=== PATIENT | male | born 1990 ===

== ENCOUNTER 2020-05-03 22:23 | Emergency (ER) | payer SELFPAY ==
--- OUTSIDE RECORDS SUMMARY | 2020-05-03 22:25 | XMS REPORT | Continuity of Care Document ---
:1990 Author Organization [facility] t Address [address] [place] [address] Care Team Providers Name Role Phone Madhu Kim MD Attending Clinician Doctor Unassigned, Name Attending Clinician Unavailable Problems This patient has no known problems. Allergies, Adverse Reactions, Alerts This patient has no known allergies or adverse reactions. Medications This patient has no known medications. Procedures This patient has no known procedures. Encounters Start End Encounter Admission Attending Care Care Encounter Source Date/Time Date/Time Type Type Clinicians Facility Department ID 2019-03-02 2019-03-02 Patient BIRGIT Kim [id number] 00:00:00 00:00:00 Secure Ms Terry DIAZ [id number] [facility] [id number] [place] AT [phone] [address] 2018-03-12 2018-03-12 Orders Doctor LEBRON [id number] 00:00:00 00:00:00 Only UnassignedPRISCA [id number] [place] [facility] [id number] Results This patient has no known results.
[2020-05-03] MEDS ORDERED: ONDANSETRON 4 MG/2 ML VIAL ONE (23:25)
[2020-05-03] MEDS ORDERED: NA CHLORIDE 0.9% 1,000 ML ONE (23:26)
[2020-05-03] MEDS ORDERED: MEPERIDINE HCL 25 MG/ML SYR ONE (23:26)
[2020-05-03 23:30] LABS: Absolute Lymphocytes (CBC) 2.4 K/uL (0.7-4.9); Basophils % 0.4 % (0-1.3); Hematocrit 37.7 % (39.6-49.0); Lymphocytes % 18.9 % (15.3-44.8); MPV 7.6 fL (7.6-11.3); RBC Red Blood Cell Count 4.49 M/uL (4.33-5.43)
[2020-05-03 23:41] LABS: ALT/SGPT 22 U/L (12-78); AST/SGOT 17 U/L (15-37); Albumin 3.5 g/dL (3.4-5.0); Alkaline Phosphatase 113 U/L (45-117); BUN Blood Urea Nitrogen 8 mg/dL (7-18); Bicarbonate 23 mmol/L (21-32); Bilirubin Direct < 0.1 mg/dL (0-0.2); Bilirubin Total 0.3 mg/dL (0.2-1.0); Glucose Level 89 mg/dL (74-106); Lipase 130 U/L (73-393); Potassium 3.6 mmol/L (3.5-5.1); Protein, Total 7.5 g/dL (6.4-8.2); Sodium Level 140 mmol/L (136-145)
--- NOTE | 2020-05-04 01:09 | EDPHYS ---
Physician Documentation [facility] Name: Graham Austin Age: 29 yrs Sex: Male : 1990 Arrival Date: 05/03/2020 Time: 22:25 Bed 4 Private MD: ED Physician Doug Hutchinson HPI: 05/03 22:48 This 29 yrs old Male presents to ER via Wheelchair with complaints of rn Diarrhea, Abdominal Pain, Bloody Stools. 22:48 The patient presents to the emergency department with diarrhea, abdominal pain. rn 22:48 Onset: The symptoms/episode began/occurred 1 week(s) ago. Possible causes: flare up of rn bowel problem, ulcerative colitis. The symptoms are aggravated by pressure, The symptoms are alleviated by nothing. Severity of symptoms: At their worst the symptoms were moderate in the emergency department the symptoms are unchanged. The patient has experienced similar episodes in the past. The patient has not recently seen a physician. Reports has ulcerative colitis, stopped taking his medication due to insurance problems, now reports 1 week of lower abd pain, assoc with bloody diarrhea. No fever/sick contacts/vomiting. . Historical: - Allergies: 22:49 Gluten Protein; 22:49 PENICILLINS; 22:49 Beta-Blockers (Beta-Adrenergic Blocking Agts); - Home Meds: 22:49 Symbicort [Active]; Lexapro Oral [Active]; ProAir [Active]; - PMHx: 22:49 Asthma; Ulcerative Colitis; - Immunization history:: Adult Immunizations not up to date. - Social history:: Smoking status: Patient/guardian denies using. - Family history:: not pertinent. - Hospitalizations: : No recent hospitalization is reported. ROS: 22:48 Constitutional: Negative for fever, chills, and weight loss, Eyes: Negative for injury, rn pain, redness, and discharge, Neck: Negative for injury, pain, and swelling, Cardiovascular: Negative for chest pain, palpitations, and edema, Respiratory: Negative for shortness of breath, cough, wheezing, and pleuritic chest pain, Abdomen/GI: + lower abd pain and diarrhea, no vomiting : Negative for injury, bleeding, discharge, and swelling, MS/Extremity: Negative for injury and deformity, Skin: Negative for injury, rash, and discoloration, Neuro: Negative for headache, weakness, numbness, tingling, and seizure. Exam: 22:48 Constitutional: This is a well developed, well nourished patient who is awake, alert, rn and in no acute distress. Head/Face: Normocephalic, atraumatic. Cardiovascular: Regular rate and rhythm. No pulse deficits. Respiratory: Speaking full sentences, unlabored. No increased work of breathing, no retractions or nasal flaring. Abdomen/GI: soft, mild RLQ and LLQ tenderness, no rebound Skin: Warm, dry MS/ Extremity: Pulses equal, no cyanosis. Neuro: Awake and alert, GCS 15 Vital Signs: 22:46 BP 133 / 77; Pulse 78; Resp 18; Temp 98.2; Pulse Ox 97% ; Weight 84.37 kg; Height 5 ft. wh 7 in. (170.18 cm); Pain 5/10; 23:27 BP 118 / 73; Pulse 69; Resp 18; Pulse Ox 99% on R/A; wh 05/04 00:30 BP 119 / 66; Pulse 73; Resp 18; Pulse Ox 99% on R/A; wh 01:30 BP 121 / 58; Pulse 81; Resp 18; Pulse Ox 98% on R/A; wh 05/03 22:46 Body Mass Index 29.13 (84.37 kg, 170.18 cm) MDM: 05/03 22:38 Patient medically screened. rn 23:47 ED course: Feels much better, currently pain free. Pending ct abdomen. . rn 05/04 01:06 Differential diagnosis: Nonspecific abd pain, viral gastroenteritis, gastroenteritis, rn colitis. Data reviewed: vital signs, nurses notes, lab test result(s), radiologic studies, CT scan, and as a result, I will discharge patient. Counseling: I had a detailed discussion with the patient and/or guardian regarding: the historical points, exam findings, and any diagnostic results supporting the discharge/admit diagnosis, lab results, radiology results, the need for outpatient follow up, to return to the emergency department if symptoms worsen or persist or if there are any questions or concerns that arise at home. Response to treatment: the patient's symptoms have markedly improved after treatment, and as a result, I will discharge patient. Special discussion: Based on the patient's Hx, exam, and Dx evaluation, there is no indication for emergent surgery or inpatient Tx. It is understood by the patient/guardian that if the Sx's persist or worsen they need to return immediately for re-evaluation. I discussed with the patient/guardian in detail that at this point there is no indication for admission to the hospital. It is understood, however, that if the symptoms persist or worsen the patient needs to return immediately for re-evaluation. Based on the history and exam findings, there is no indication for further emergent testing or inpatient evaluation. I discussed with the patient/guardian the need to see the addiction specialist for further evaluation of the symptoms. ED course: Pt improved, pain free, CT shows mild infectious vs inflammatory colitis, normal h/h, will given abx and bentyl, will dc home with GI f/u, abx, and bentyl. Return precautions given and understood. . 05/03 22:45 Order name: Basic Metabolic Panel; Complete Time: 23:42 05/03 22:45 Order name: CBC with Diff; Complete Time: 23:42 05/03 22:45 Order name: Hepatic Function; Complete Time: 23:42 05/03 22:45 Order name: Lipase; Complete Time: 23:42 05/03 22:45 Order name: CT Abd/Pelvis - IV Contrast Only 05/03 22:45 Order name: IV Saline Lock; Complete Time: 23:10 05/03 22:45 Order name: Labs collected and sent; Complete Time: 23:10 rn Administered Medications: 05/03 23:15 Drug: NS 0.9% 1000 ml Route: IV; Rate: 1000 ml; Site: left antecubital; 05/04 00:25 Follow up: IV Status: Completed infusion 05/03 23:17 Drug: Demerol 25 mg Route: IVP; Site: left antecubital; 05/04 00:25 Follow up: Response: No adverse reaction; Pain is decreased; RASS: Alert and Calm (0) 05/03 23:19 Drug: Zofran (Ondansetron) 4 mg Route: IVP; Site: left antecubital; 05/04 00:25 Follow up: Response: No adverse reaction; Nausea is decreased 01:16 CANCELLED (Physician Discretion): Cipro 400 mg 200 ml IVPB once over 60 mins 01:16 CANCELLED (Other Intervention Used): Flagyl 500 mg 100 ml IVPB at 200 ml/hr once over bb 30 mins 01:25 Drug: SOLU-Medrol 125 mg Route: IVP; Site: right antecubital; 01:36 Follow up: Response: No adverse reaction 01:25 Drug: Bentyl 20 mg Route: PO; 01:36 Follow up: Response: No adverse reaction 01:25 Drug: Flagyl 500 mg Route: PO; 01:36 Follow up: Response: No adverse reaction 01:25 Drug: Cipro 500 mg Route: PO; 01:36 Follow up: Response: No adverse reaction Disposition: 05/04/20 01:10 Discharged to Home. Impression: Colitis. - Condition is Stable. - Discharge Instructions: Colitis. - Prescriptions for Zofran ODT 4 mg Oral tablet,disintegrating - place 1 tablet by TRANSLINGUAL route every 8 hours As needed followed by 2 additional 8 mg doses at 8 hour intervals; 20 tablet. Bentyl 20 mg Oral Tablet - take 1 tablet by ORAL route every 6 hours As needed; 20 tablet. Cipro 500 mg Oral Tablet - take 1 tablet by ORAL route every 12 hours for 10 days; 20 tablet. Flagyl 500 mg Oral Tablet - take 1 tablet by ORAL route every 8 hours for 10 days; 30 tablet. Prednisone 20 mg Oral Tablet - take 3 tablet by ORAL route once daily for 5 days; 15 tablet. - Medication Reconciliation Form, Thank You Letter, Antibiotic Education, Prescription Opioid Use, Work release form form. - Follow up: Serafin Joaquin MD; When: As needed; Reason: Recheck today's complaints, Re-evaluation by your physician. - Problem is new. - Symptoms have improved. Signatures: Dispatcher [employer] EDTN Ximena Montero RN RN bb Nieto, Roman, MD MD rn Habalo, Winsy Corrections: (The following items were deleted from the chart) 01:09 01:08 05/04/2020 01:08 Discharged to Home. Impression: Colitis. Condition is Stable. rn Forms are Medication Reconciliation Form, Thank You Letter, Antibiotic Education, Prescription Opioid Use. Follow up: Serafin Joaquin; When: As needed; Reason: Recheck today's complaints, Re-evaluation by your physician. Problem is new. Symptoms have improved. rn 01:16 01:06 Cipro 400 mg 200 ml IVPB once over 60 mins ordered. mecca bb 01:16 01:06 Flagyl 500 mg 100 ml IVPB at 200 ml/hr once over 30 mins ordered. mecca bb 01:38 01:10 05/04/2020 01:10 Discharged to Home. Impression: Colitis. Condition is Stable. wh Prescriptions for Bentyl 20 mg Oral Tablet - take 1 tablet by ORAL route every 6 hours As needed; 20 tablet, Cipro 500 mg Oral Tablet - take 1 tablet by ORAL route every 12 hours for 10 days; 20 tablet, Flagyl 500 mg Oral Tablet - take 1 tablet by ORAL route every 8 hours for 10 days; 30 tablet. and Forms are Medication Reconciliation Form, Thank You Letter, Antibiotic Education, Prescription Opioid Use. Follow up: Serafin Joaquin; When: As needed; Reason: Recheck today's complaints, Re-evaluation by your physician. Problem is new. Symptoms have improved. rn
--- NOTE | 2020-05-04 01:09 | ER ---
Nurse's Notes [facility] Name: Graham Austin Age: 29 yrs Sex: Male : 1990 Arrival Date: 05/03/2020 Time: 22:25 Bed 4 Private MD: Diagnosis: Colitis Presentation: 05/03 22:46 Chief complaint: Patient states: HX of Ulcerative Colitis, PT not taking meds wh currently, C/O diarrhea that started 2 weeks ago, abd pain that started last night and bloody stools. Coronavirus screen: Client denies travel out of the [place] in the last 14 days. diarrhea. Ebola Screen: Patient negative for fever greater than or equal to 101.5 degrees Fahrenheit, and additional compatible Ebola Virus Disease symptoms Patient denies exposure to infectious person. Initial Sepsis Screen: Does the patient meet any 2 criteria? No. Patient's initial sepsis screen is negative. Does the patient have a suspected source of infection? Yes: Other: Diarrhea. Risk Assessment: Do you want to hurt yourself or someone else? Patient reports no desire to harm self or others. Onset of symptoms was May 03, 2020. 22:46 Method Of Arrival: Wheelchair 22:46 Acuity: LINA 3 wh Historical: - Allergies: 22:49 Gluten Protein; 22:49 PENICILLINS; 22:49 Beta-Blockers (Beta-Adrenergic Blocking Agts); - Home Meds: 22:49 Symbicort [Active]; Lexapro Oral [Active]; ProAir [Active]; - PMHx: 22:49 Asthma; Ulcerative Colitis; - Immunization history:: Adult Immunizations not up to date. - Social history:: Smoking status: Patient/guardian denies using. - Family history:: not pertinent. - Hospitalizations: : No recent hospitalization is reported. Screenin:49 Abuse screen: Denies threats or abuse. Denies injuries from another. Nutritional screening: No deficits noted. Tuberculosis screening: No symptoms or risk factors identified. Fall Risk None identified. Assessment: 22:49 General: Appears in no apparent distress. Behavior is calm, cooperative, appropriate wh for age. Pain: Complains of pain in epigastric area, right lower quadrant and left lower quadrant Pain does not radiate. Pain currently is 5 out of 10 on a pain scale. Quality of pain is described as crampy, Pain began 1 day ago. Neuro: Level of Consciousness is awake, alert, obeys commands, Oriented to person, place, time, situation, Appropriate for age. Cardiovascular: Capillary refill < 3 seconds. Respiratory: Airway is patent Respiratory effort is even, unlabored, Respiratory pattern is regular, symmetrical, Breath sounds are clear bilaterally. GI: Abdomen is flat, non-distended, Abd is soft Abd is non tender. : No signs and/or symptoms were reported regarding the genitourinary system. EENT: No signs and/or symptoms were reported regarding the EENT system. Derm: Skin is intact, is healthy with good turgor, Skin is pink, warm \T\ dry. normal. Musculoskeletal: Circulation, motion, and sensation intact. 23:27 Reassessment: Patient appears in no apparent distress at this time. No changes from previously documented assessment. Patient and/or family updated on plan of care and expected duration. Pain level reassessed. Patient is alert, oriented x 3, equal unlabored respirations, skin warm/dry/pink. 05/04 00:30 Reassessment: Patient appears in no apparent distress at this time. Patient and/or family updated on plan of care and expected duration. Pain level reassessed. Patient is alert, oriented x 3, equal unlabored respirations, skin warm/dry/pink. 01:36 Reassessment: Patient appears in no apparent distress at this time. Patient and/or family updated on plan of care and expected duration. Pain level reassessed. Patient is alert, oriented x 3, equal unlabored respirations, skin warm/dry/pink. Patient states feeling better. Patient states symptoms have improved. Vital Signs: 05/03 22:46 BP 133 / 77; Pulse 78; Resp 18; Temp 98.2; Pulse Ox 97% ; Weight 84.37 kg; Height 5 ft. 7 in. (170.18 cm); Pain /; 23:27 BP 118 / 73; Pulse 69; Resp 18; Pulse Ox 99% on R/A; wh 05/04 00:30 BP 119 / 66; Pulse 73; Resp 18; Pulse Ox 99% on R/A; 01:30 BP 121 / 58; Pulse 81; Resp 18; Pulse Ox 98% on R/A; 05/03 22:46 Body Mass Index 29.13 (84.37 kg, 170.18 cm) ED Course: 05/03 22:25 Patient arrived in ED. bp1 22:38 Doug Hutchinson MD is Attending Physician. rn 22:46 Teodoro Aguilar is Primary Nurse. 22:47 Triage completed. 22:50 Arm band placed on right wrist. 22:50 Patient has correct armband on for positive identification. Placed in gown. Bed in low wh position. Call light in reach. Side rails up X 1. Pulse ox on. NIBP on. 23:05 Inserted saline lock: 18 gauge in left antecubital area, using aseptic technique. Blood ds4 collected. 05/04 00:21 CT Abd/Pelvis - IV Contrast Only In Process Unspecified. EDMS 01:07 Serafin Joaquin MD is Referral Physician. rn 01:09 Serafin Joaquin MD is Referral Physician. rn 01:37 No provider procedures requiring assistance completed. IV discontinued, intact, bleeding controlled, No redness/swelling at site. Administered Medications: 05/03 23:15 Drug: NS 0.9% 1000 ml Route: IV; Rate: 1000 ml; Site: left antecubital; 05/04 00:25 Follow up: IV Status: Completed infusion 05/03 23:17 Drug: Demerol 25 mg Route: IVP; Site: left antecubital; 05/04 00:25 Follow up: Response: No adverse reaction; Pain is decreased; RASS: Alert and Calm (0) 05/03 23:19 Drug: Zofran (Ondansetron) 4 mg Route: IVP; Site: left antecubital; 05/04 00:25 Follow up: Response: No adverse reaction; Nausea is decreased 01:16 CANCELLED (Physician Discretion): Cipro 400 mg 200 ml IVPB once over 60 mins bb 01:16 CANCELLED (Other Intervention Used): Flagyl 500 mg 100 ml IVPB at 200 ml/hr once over bb 30 mins 01:25 Drug: SOLU-Medrol 125 mg Route: IVP; Site: right antecubital; 01:36 Follow up: Response: No adverse reaction 01:25 Drug: Bentyl 20 mg Route: PO; 01:36 Follow up: Response: No adverse reaction 01:25 Drug: Flagyl 500 mg Route: PO; 01:36 Follow up: Response: No adverse reaction 01:25 Drug: Cipro 500 mg Route: PO; 01:36 Follow up: Response: No adverse reaction Outcome: 01:08 Discharge ordered by . rn 01:10 Discharge ordered by . rn 01:37 Discharged to home ambulatory. 01:37 Condition: stable 01:37 Discharge instructions given to patient, Instructed on discharge instructions, follow up and referral plans. medication usage, POC Demonstrated understanding of instructions, follow-up care, medications, POC Prescriptions given X 4. 01:38 Patient left the ED. Signatures: Dispatcher [employer] EDMS Doug Hutchinson MD MD rn Swanson, Donovan ds4 Teodoro Aguilar Asha Brennan Brenda RN bb
[2020-05-04] MEDS ORDERED: DICYCLOMINE HCL 10 MG CAP ONE (01:25)
[2020-05-04] MEDS ORDERED: METHYLPREDNISOLONE 125 MG INJ ONE (01:25)
[2020-05-04] MEDS ORDERED: metroNIDAZOLE 500 MG TABLET ONE (01:25)
[2020-05-04] MEDS ORDERED: CIPROFLOXACIN HCL 500 MG TAB ONE (01:30)
[2020-05-04 01:45] VITALS: TEMP 98.2
[2020-05-04 01:49] VITALS: BP 121/58; O2SAT 98
--- NOTE | 2020-05-04 12:42 | RAD REPORT ---
EXAM DESCRIPTION: CT - Abdomen Pelvis W Contrast - 05/04/2020 7:16 am CLINICAL HISTORY: 29 years Male ABD PAIN COMPARISON: None. TECHNIQUE: Contiguous axial images obtained through the abdomen and pelvis following IV contrast. Re formatted images obtained. This exam was performed according to our department optimization program which includes automated exp osure control, adjustment of the mA and/or kv according to patient size and/or use of iterative recon struction technique. FINDINGS: The lung bases are clear. There is a tiny low density lesion in the right lobe of the liver that likely represents a cyst. The spleen and pancreas appear unremarkable. No adrenal masses. There is a tiny nonobstructing right renal calculus. No hydronephrosis. The gallbladder is visualized. No aneurysmal dilatation of the aorta. No bowel obstruction. The appendix appears unremarkable. There is wall thickening throughout much of the colon with mild surrounding inflammatory change in some areas. The findings are consisten t with infectious or inflammatory colitis. No significant free pelvic fluid. There are a few slightly prominent mesenteric lymph nodes whi ch are likely reactive. IMPRESSION: There are findings consistent with infectious or inflammatory colitis. Tiny nonobstructing right renal calculus. Electronically signed by: Emeterio James MD 05/04/2020 12:44 AM CDT Due to temporary technical issues with the PACS/Fluency reporting system, reports are being signed by the in house radiologist without review as a courtesy to ensure prompt reporting. The interpreting r adiologist is fully responsible for the content of the report.
== END 2020-05-04 01:38 | disposition home or self-care (01) ==
LOC: ER 22:23
DX: K52.9 Noninfective gastroenteritis and colitis, unspecified (principal); J45.909 Unspecified asthma, uncomplicated; Z88.0 Allergy status to penicillin; Z88.8 Allergy status to other drugs, medicaments and biological substances; Z88.9 Allergy status to unspecified drugs, medicaments and biological substances
CPT/HCPCS: 36415; 74177; 80048; 80076; 83690; 85025; 99284; J2175; J2405; J2930; J7030; Q9967

== ENCOUNTER 2020-05-19 22:21 | Emergency (ER) | payer BC, SELFPAY ==
--- OUTSIDE RECORDS SUMMARY | 2020-05-19 22:23 | XMS REPORT | Continuity of Care Document ---
:1990 Author Organization [facility] t Address [address] [place] [address] Care Team Providers Name Role Phone Madhu [...] ID 2019-03-02 2019-03-02 Patient BIRGIT Kim [id number] 00:00:00 00:00:00 Secure Ms Terry DIAZ [id number] Madhu CARE [id number] CENTER AT [phone] [address] 2018-03-12 2018-03-12 Orders Doctor LEBRON [id number] 00:00:00 00:00:00 Only UnassPRISCA cueva [id number] [place] [facility] [id number] Results This patient has no known results.
[2020-05-19] MEDS ORDERED: MEPERIDINE HCL 25 MG/ML SYR ONE ×2 (23:17→23:52)
[2020-05-19] MEDS ORDERED: FAMOTIDINE 20 MG/2 ML VIAL IV ONE (23:17)
[2020-05-19] MEDS ORDERED: NA CHLORIDE 0.9% 1,000 ML ONE ×2 (23:17→23:52)
[2020-05-19] MEDS ORDERED: PROMETHAZINE INJ 25 MG/ML AMP ONE (23:17)
[2020-05-19 23:51] LABS: Absolute Lymphocytes (CBC) 1.7 K/uL (0.7-4.9); Basophils % 0.1 % (0-1.3); Hematocrit 36.6 % (39.6-49.0); Lymphocytes % 18.6 % (15.3-44.8); MPV 7.9 fL (7.6-11.3)
[2020-05-20 00:02] LABS: ALT/SGPT 26 U/L (12-78); AST/SGOT 13 U/L (15-37); Albumin 3.4 g/dL (3.4-5.0); Alkaline Phosphatase 95 U/L (45-117); BUN Blood Urea Nitrogen 15 mg/dL (7-18); Bicarbonate 31 mmol/L (21-32); Bilirubin Direct < 0.1 mg/dL (0-0.2); Bilirubin Total 0.3 mg/dL (0.2-1.0); Glucose Level 102 mg/dL (74-106); Lipase 87 U/L (73-393); Potassium 3.8 mmol/L (3.5-5.1); Protein, Total 7.5 g/dL (6.4-8.2); Sodium Level 142 mmol/L (136-145)
[2020-05-20] MEDS ORDERED: DICYCLOMINE HCL 20 MG/2 ML AMP IM ONE (00:55)
[2020-05-20] MEDS ORDERED: MORPHINE 4 MG/ML SYR ONE (01:38)
--- NOTE | 2020-05-20 02:41 | EDPHYS ---
Physician Documentation [facility] Name: Graham Austin Age: 29 yrs Sex: Male : 1990 Arrival Date: 05/19/2020 Time: 22:24 Bed 14 Private MD: ED Physician Florentin Connelly HPI: 05/19 22:42 This 29 yrs old Male presents to ER via Wheelchair with complaints of Abdominal Pain, cp Nausea/Vomiting. 22:42 The patient presents with abdominal pain that is diffuse. Associated signs and cp symptoms: Pertinent positives: nausea and vomiting. 22:42 The patient has experienced similar episodes in the past, several times, Patient cp reports being recently diagnosed with ulcerative colitis. Was seen at [facility] recently. Currently taking oral steroids and bentyl for pain. 22:42 The symptoms do not radiate. Severity of pain: in the emergency department the pain is cp unchanged despite home interventions. Historical: - Allergies: 22:43 Beta-Blockers (Beta-Adrenergic Blocking Agts); jd3 22:43 Gluten Protein; jd3 22:43 PENICILLINS; jd3 - Home Meds: 22:43 Lexapro Oral [Active]; Zofran Oral [Active]; Bentyl Oral [Active]; citalopram oral jd3 [Active]; Methylprednisolone Oral [Active]; - PMHx: 22:43 Asthma; ulcerative colitis; jd3 - PSHx: 22:43 None; jd3 - Immunization history:: Adult Immunizations up to date. - Social history:: Smoking status: Patient denies any tobacco usage or history of. ROS: 22:45 Constitutional: Negative for body aches, chills, fever. cp 22:45 Eyes: Negative for injury, pain, redness, and discharge. cp 22:45 ENT: Negative for ear pain, sore throat, difficulty swallowing, difficulty handling secretions. 22:45 Respiratory: Negative for cough, shortness of breath, wheezing. 22:45 Abdomen/GI: Positive for abdominal pain, nausea and vomiting, Negative for diarrhea, constipation, black/tarry stool, rectal bleeding. 22:45 : Negative for urinary symptoms. 22:45 Neuro: Negative for headache, weakness. 22:45 All other systems are negative. Exam: 22:50 Constitutional: The patient appears in no acute distress, alert, awake, non-toxic, well cp developed, well nourished, uncomfortable. 22:50 Head/Face: Normocephalic, atraumatic. cp 22:50 Eyes: Periorbital structures: appear normal, Conjunctiva: normal, no exudate, no injection, Lids and lashes: appear normal, bilaterally. 22:50 ENT: External ear(s): are unremarkable, Nose: is normal, Mouth: Lips: moist, Oral mucosa: moist, Posterior pharynx: Airway: no evidence of obstruction, patent. 22:50 Chest/axilla: Inspection: normal, Palpation: is normal, no crepitus, no tenderness. 22:50 Cardiovascular: Rate: normal, Rhythm: regular. 22:50 Respiratory: the patient does not display signs of respiratory distress, Respirations: normal, no use of accessory muscles, no retractions, labored breathing, is not present, Breath sounds: are clear throughout, no decreased breath sounds, no stridor, no wheezing. 22:50 Abdomen/GI: Inspection: abdomen appears normal, Bowel sounds: active, all quadrants, Palpation: soft, in all quadrants, moderate abdominal tenderness, in the abdomen diffusely, rebound tenderness, is not appreciated, voluntary guarding, is elicited in all quadrants. 22:50 Back: pain, is absent, ROM is normal. Vital Signs: 22:43 BP 135 / 81; Pulse 72; Resp 20 S; Temp 98.6(O); Pulse Ox 99% on R/A; Weight 81.65 kg jd3 (R); Height 5 ft. 7 in. (170.18 cm) (R); Pain 8/10; 23:44 BP 134 / 82; Pulse 80; Resp 19 S; Pulse Ox 100% on R/A; jd3 05/20 01:08 BP 136 / 86; Pulse 86; Resp 18; Pulse Ox 99% on R/A; lp1 03:37 BP 146 / 75; Pulse 88; Resp 16; Pulse Ox 99% on R/A; Pain 4/10; lp1 05/19 22:43 Body Mass Index 28.19 (81.65 kg, 170.18 cm) jd3 MDM: 05/19 22:32 Patient medically screened. cp 23:00 Differential diagnosis: appendicitis, bowel obstruction, diverticulitis, gastritis, GI cp Bleed, pancreatitis, colitis. 05/20 00:59 ED course: no active RXs for narcotic medications noted on website for [facility] prescription monitor. 02:40 Data reviewed: vital signs, nurses notes, lab test result(s), radiologic studies, CT cp scan. 02:40 Counseling: I had a detailed discussion with the patient and/or guardian regarding: the cp historical points, exam findings, and any diagnostic results supporting the discharge/admit diagnosis, lab results, radiology results, the need for outpatient follow up, for definitive care, a applications trainer, to return to the emergency department if symptoms worsen or persist or if there are any questions or concerns that arise at home. Response to treatment: VSS. Labs and radiology studies reviewed. H/H stable and CT abdomen/pelvis shows colitis improved from previous CT. Patient tolerating po fluids. Will discharge to home for continued monitoring. 05/19 22:43 Order name: Basic Metabolic Panel; Complete Time: 00:04 cp 05/20 00:05 Interpretation: Normal except: GFR 81. 05/19 22:43 Order name: CBC with Diff; Complete Time: 00:04 05/20 00:05 Interpretation: Normal except: HGB 12.7; HCT 36.6. 05/19 22:43 Order name: Hepatic Function; Complete Time: 00:04 cp 05/19 22:43 Order name: Lipase; Complete Time: 00:04 cp 05/19 23:37 Order name: CT Abd/Pelvis - IV Contrast Only 05/19 22:43 Order name: IV Saline Lock; Complete Time: 23:01 cp 05/19 22:43 Order name: Labs collected and sent; Complete Time: 23:01 cp Administered Medications: 05/19 23:12 Drug: NS 0.9% 1000 ml Route: IV; Rate: 1 bolus; Site: right antecubital; jd3 23:43 Follow up: Response: No adverse reaction; IV Status: Completed infusion; IV Intake: jd3 1000ml 23:12 Drug: Demerol 25 mg Route: IVP; Site: right antecubital; jd3 23:43 Follow up: Response: No adverse reaction; RASS: Restless (+1) jd3 23:12 Drug: Phenergan 25 mg Route: IVP; Site: right antecubital; jd3 23:43 Follow up: Response: No adverse reaction jd3 23:13 Drug: Pepcid 20 mg Route: IVP; Site: right antecubital; jd3 23:43 Follow up: Response: No adverse reaction jd3 23:42 Drug: Demerol 25 mg Route: IVP; Site: right antecubital; jd3 05/20 00:15 Follow up: Response: No change in condition; Pain is unchanged, physician notified lp1 05/19 23:43 Drug: NS 0.9% 1000 ml Route: IV; Rate: 125 ml/hr; Site: right antecubital; jd3 05/20 01:05 Drug: Bentyl 20 mg Route: IM; Site: right gluteus; lp1 01:31 Follow up: Response: No adverse reaction lp1 01:30 Drug: morphine 4 mg {Note: RASS 0.} Route: IVP; Site: right antecubital; lp1 02:41 Follow up: Response: No adverse reaction lp1 02:54 Drug: SOLU-Medrol 80 mg Route: IVP; Site: right antecubital; lp1 03:41 Follow up: Response: No adverse reaction lp1 02:54 Drug: Reglan 10 mg Route: IVP; Site: right antecubital; lp1 03:41 Follow up: Response: No adverse reaction lp1 03:18 Drug: Hydrocodone-Acetaminophen (7.5 mg-325 mg) 1 tabs Route: PO; lp1 03:41 Follow up: Response: Medication administered at discharge. lp1 Disposition: 07:24 Co-signature as Attending Physician, Florentin Connelly MD. [email or web address] Disposition: 05/20/20 02:40 Discharged to Home. Impression: Noninfective gastroenteritis and colitis, unspecified. - Condition is Stable. - Discharge Instructions: Nausea and Vomiting, Adult, Colitis. - Prescriptions for Tylenol- Codeine #3 300-30 mg Oral Tablet - take 2 tablets by ORAL route every 6 hours As needed; 20 tablet. promethazine 25 mg Oral Tablet - take 1 tablet by ORAL route every 6 hours As needed; 20 tablet. - Work release form, Medication Reconciliation Form, Thank You Letter, Antibiotic Education, Prescription Opioid Use form. - Follow up: Serafin Joaquin MD; When: 1 - 2 days; Reason: Recheck today's complaints. - Problem is an ongoing problem. - Symptoms have improved. Signatures: Dispatcher [employer] EDMalika Davies RN RN lp1 Viraj Rodriguez PA PA cp Davies, Jonathon RN RN jd3 Florentin Connelly MD MD [email or web address] Corrections: (The following items were deleted from the chart) 03:40 02:40 05/20/2020 02:40 Discharged to Home. Impression: Noninfective gastroenteritis and lp1 colitis, unspecified. Condition is Stable. Forms are Medication Reconciliation Form, Thank You Letter, Antibiotic Education, Prescription Opioid Use. Follow up: Serafin Joaquin; When: 1 - 2 days; Reason: Recheck today's complaints. Problem is an ongoing problem. Symptoms have improved. cp
--- NOTE | 2020-05-20 02:41 | ER ---
Nurse's Notes [facility] Name: Graham Austin Age: 29 yrs Sex: Male : 1990 Arrival Date: 05/19/2020 Time: 22:24 Bed 14 [facility] MD: Diagnosis: Noninfective gastroenteritis and colitis, unspecified Presentation: 05/19 22:40 Chief complaint: Patient states: "I have ulcerative colitis and I am having a flair up. jd3 I don't have any medications for it because I am waiting on insurance and a specialist, but I was here about a month ago and at [place] yesterday and tonight the pain has just gotten worse.". Coronavirus screen: At this time, the client does not indicate any symptoms associated with coronavirus-19. Ebola Screen: Patient negative for fever greater than or equal to 101.5 degrees Fahrenheit, and additional compatible Ebola Virus Disease symptoms. Initial Sepsis Screen: Does the patient meet any 2 criteria? No. Patient's initial sepsis screen is negative. Does the patient have a suspected source of infection? No. Patient's initial sepsis screen is negative. Risk Assessment: Do you want to hurt yourself or someone else? Patient reports no desire to harm self or others. Onset of symptoms was May 19, 2020. 22:40 Method Of Arrival: Wheelchair jd3 22:40 Acuity: LINA 3 jd3 Historical: - Allergies: 22:43 Beta-Blockers (Beta-Adrenergic Blocking Agts); jd3 22:43 Gluten Protein; jd3 22:43 PENICILLINS; jd3 - Home Meds: 22:43 Lexapro Oral [Active]; Zofran Oral [Active]; Bentyl Oral [Active]; citalopram oral jd3 [Active]; Methylprednisolone Oral [Active]; - PMHx: 22:43 Asthma; ulcerative colitis; jd3 - PSHx: 22:43 None; jd3 - Immunization history:: Adult Immunizations up to date. - Social history:: Smoking status: Patient denies any tobacco usage or history of. Screenin:45 Abuse screen: Denies threats or abuse. Nutritional screening: No deficits noted. jd3 Tuberculosis screening: No symptoms or risk factors identified. Fall Risk Ambulatory Aid- None/Bed Rest/Nurse Assist (0 pts). Gait- Normal/Bed Rest/Wheelchair (0 pts) Mental Status- Oriented to own ability (0 pts). Total Blackwell Fall Scale indicates No Risk (0-24 pts). Assessment: 22:44 General: Appears in no apparent distress. uncomfortable, Behavior is calm, cooperative, jd3 appropriate for age. Pain: Complains of pain in abdomen Quality of pain is described as sharp, tender. Neuro: Level of Consciousness is awake, alert, obeys commands, Oriented to person, place, time, situation. Cardiovascular: Denies chest pain, Capillary refill < 3 seconds Patient's skin is warm and dry. Respiratory: Airway is patent Respiratory effort is even, unlabored, Respiratory pattern is regular, symmetrical, Denies cough, shortness of breath. GI: Abdomen is round non-distended, Abd is soft X 4 quads Abdomen is tender to palpation X 4 quads. Reports diarrhea, nausea, vomiting. : No signs and/or symptoms were reported regarding the genitourinary system. EENT: No signs and/or symptoms were reported regarding the EENT system. Derm: Skin is intact, Skin is dry, Skin is normal, Skin temperature is warm. Musculoskeletal: Circulation, motion, and sensation intact. Range of motion: intact in all extremities. 23:43 Reassessment: Patient appears in no apparent distress at this time. No changes from jd3 previously documented assessment. Patient and/or family updated on plan of care and expected duration. Pain level reassessed. Patient is alert, oriented x 3, equal unlabored respirations, skin warm/dry/pink. 05/20 00:42 Reassessment: Patient noted to be vomiting, reports pain 7/10 on pain scale; Provider lp1 notified of patient complaint of unrelieved pain to lower abdomen; verbal order for Bentyl 20mg IM now. 01:00 Reassessment: Patient returned from CT at this time; reports pain is making him vomit. lp1 02:15 Reassessment: patient reports minimal relief after administration of Morphine; provider lp1 notified. 02:30 Reassessment: Provider at bedside to discuss results with patient. lp1 03:00 Reassessment: Patient able to lie in bed at this time, reports continued burning to lp1 lower abdomen. 03:19 Reassessment: Patient standing in room, pacing, reports lower abdominal pain rated at lp1 5/10 on pain scale, states pain is constant, "I don't know if I can go home like this"; Educated on continuing steroids prescribed and new prescriptions this visit. 03:36 Reassessment: Patient appears in no apparent distress at this time. Patient reports lp1 pain slightly improved at this time, states readiness for discharge. Vital Signs: 05/19 22:43 BP 135 / 81; Pulse 72; Resp 20 S; Temp 98.6(O); Pulse Ox 99% on R/A; Weight 81.65 kg jd3 (R); Height 5 ft. 7 in. (170.18 cm) (R); Pain 8/10; 23:44 BP 134 / 82; Pulse 80; Resp 19 S; Pulse Ox 100% on R/A; jd3 05/20 01:08 BP 136 / 86; Pulse 86; Resp 18; Pulse Ox 99% on R/A; lp1 03:37 BP 146 / 75; Pulse 88; Resp 16; Pulse Ox 99% on R/A; Pain 4/10; lp1 05/19 22:43 Body Mass Index 28.19 (81.65 kg, 170.18 cm) jd3 ED Course: 05/19 22:24 Patient arrived in ED. bp1 22:27 Viraj Rodriguez PA is PHCP. cp 22:27 Florentin Connelly MD is Attending Physician. cp 22:40 Enoc Huffman, RENEE is Primary Nurse. jd3 22:41 Triage completed. jd3 22:44 Arm band placed on. jd3 22:46 Patient has correct armband on for positive identification. Bed in low position. Call j light in reach. Side rails up X2. Adult w/ patient. Pulse ox on. NIBP on. 23:13 Inserted saline lock: 20 gauge in right antecubital area, using aseptic technique. jd3 Blood collected. 05/20 01:59 CT Abd/Pelvis - IV Contrast Only In Process Unspecified. EDMS 02:38 No provider procedures requiring assistance completed. lp1 02:40 Serafin Joaquin MD is Referral Physician. cp 03:37 IV discontinued, No redness/swelling at site. Pressure dressing applied. lp1 Administered Medications: 05/19 23:12 Drug: NS 0.9% 1000 ml Route: IV; Rate: 1 bolus; Site: right antecubital; jd3 23:43 Follow up: Response: No adverse reaction; IV Status: Completed infusion; IV Intake: jd3 1000ml 23:12 Drug: Demerol 25 mg Route: IVP; Site: right antecubital; jd3 23:43 Follow up: Response: No adverse reaction; RASS: Restless (+1) jd3 23:12 Drug: Phenergan 25 mg Route: IVP; Site: right antecubital; jd3 23:43 Follow up: Response: No adverse reaction jd3 23:13 Drug: Pepcid 20 mg Route: IVP; Site: right antecubital; jd3 23:43 Follow up: Response: No adverse reaction jd3 23:42 Drug: Demerol 25 mg Route: IVP; Site: right antecubital; jd3 05/20 00:15 Follow up: Response: No change in condition; Pain is unchanged, physician notified lp1 05/19 23:43 Drug: NS 0.9% 1000 ml Route: IV; Rate: 125 ml/hr; Site: right antecubital; jd3 05/20 01:05 Drug: Bentyl 20 mg Route: IM; Site: right gluteus; lp1 01:31 Follow up: Response: No adverse reaction lp1 01:30 Drug: morphine 4 mg {Note: RASS 0.} Route: IVP; Site: right antecubital; lp1 02:41 Follow up: Response: No adverse reaction lp1 02:54 Drug: SOLU-Medrol 80 mg Route: IVP; Site: right antecubital; lp1 03:41 Follow up: Response: No adverse reaction lp1 02:54 Drug: Reglan 10 mg Route: IVP; Site: right antecubital; lp1 03:41 Follow up: Response: No adverse reaction lp1 03:18 Drug: Hydrocodone-Acetaminophen (7.5 mg-325 mg) 1 tabs Route: PO; lp1 03:41 Follow up: Response: Medication administered at discharge. lp1 Intake: 05/19 23:43 IV: 1000ml; Total: 1000ml. jd3 Outcome: 05/20 02:40 Discharge ordered by . cp 03:37 Discharged to home ambulatory, with significant other. lp1 03:37 Condition: good 03:37 Discharge instructions given to patient, significant other, Instructed on discharge instructions, follow up and referral plans. medication usage, Demonstrated understanding of instructions, follow-up care, medications, Prescriptions given X 2. 03:40 Patient left the ED. lp1 Signatures: Dispatcher [employer] EDMalika Davies RN RN lp1 Viraj Rodriguez PA PA cp Davies, Jonathon, RN RN jd3 Asha Brennan
[2020-05-20] MEDS ORDERED: METOCLOPRAMIDE 10 MG/2mL INJ ONE (02:58)
[2020-05-20] MEDS ORDERED: HYDROCODONE/APAP 7.5/325 MG TAB ONE (02:59)
[2020-05-20] MEDS ORDERED: METHYLPREDNISOLONE 40 MG INJ ONE (02:59)
[2020-05-20 06:50] VITALS: TEMP 98.6
[2020-05-20 06:53] VITALS: O2SAT 99
[2020-05-20 06:55] VITALS: BP 146/75
--- NOTE | 2020-05-21 12:05 | RAD REPORT ---
EXAM DESCRIPTION: CT - Abdomen Pelvis W Contrast - 05/20/2020 8:19 am CLINICAL HISTORY: Abdominal pain. COMPARISON: CT abdomen and pelvis with contrast 05/04/2020. TECHNIQUE: Axial CT imaging of the abdomen and pelvis performed with intravenous contrast. Reformatt ed coronal and sagittal images reviewed. A dose reduction technique was utilized with automated exposure control according to patient size. FINDINGS: Clear lung bases. Heart is normal in size. The liver is normal in size, contour, and attenuation. The gallbladder appears normal. Normal spleen and pancreas. Normal adrenal glands. Both kidneys appear normal. Aorta and inferior cava are normal i n caliber. Minimally enlarged aortocaval node is 3.7 x 1.2 x 1.1 cm. Mesenteric vessels appear normal . Unremarkable stomach. The small bowel loops are normal in caliber. There is significant wall thickeni ng within a long segment of small bowel within the lower abdomen with adjacent mesenteric edema. The appendix is unremarkable in retrocecal addition in the right lower quadrant. There is persistent circ umferential thickening of the distal transverse, descending, and sigmoid colon although improved sinc e reference exam. Mild pericolonic edema persists. There is minimal perihepatic ascites. There is no free air. There are mildly enlarged right mesenteri c lymph nodes. Unremarkable bladder. Normal prostate. Unremarkable lumbar spine and sacrum. Bony pelvis and hips. IMPRESSION: 1. Persistent colitis involving the transverse, descending and sigmoid colon, significan tly improved in the transverse colon and mildly improved in the descending and sigmoid colon. There i s however a new long segment of enteritis within the lower abdomen and pelvis. The multifocality of d isease raises the possibility of Crohn's disease.. 2. Minimal perihepatic ascites. 3. Mild mesenteric and aortocaval adenitis. Electronically signed by: Tanvi Galvan DO 05/20/2020 2:19 AM [employer]IST [employer] Due to temporary technical issues with the PACS/Fluency reporting system, reports are being signed b y the in house radiologist without review as a courtesy to ensure prompt reporting. The interpreting radiologist is fully responsible for the content of the report.
== END 2020-05-20 03:40 | disposition home or self-care (01) ==
LOC: ER 22:21
DX: K52.9 Noninfective gastroenteritis and colitis, unspecified (principal); Z88.0 Allergy status to penicillin; Z88.8 Allergy status to other drugs, medicaments and biological substances; J45.909 Unspecified asthma, uncomplicated
CPT/HCPCS: 96361; 85025; 80048; 36415; 80076; 83690; 74177; 96375; 96372; 96374; 99284; Q9967; J2765; J2550; J0500; J2175 ×2; J7030 ×2; J2920